=== PATIENT | male | born 1980 | race Caucasian/White ===

== ENCOUNTER → 2016-09-11 | Outpatient (CLI) | payer OTHER ==
[~2016-09-11] MED LIST: DICL75TA PO; GABA600T PO; IBUP80TA PO; NAPR500T3 PO; PERCOCET PO; TIZA4CAP3 PO; VITAPOW41 PO; [UNRECOGNIZED DRUG - CODE] SL
--- NOTE | 2016-09-16 07:29 | REP ---
MR CERVICAL SPINE WITHOUT CONTRAST: HISTORY: Neck pain. COMPARISON: 06/04/2014 A disc bulge and small disc extrusion central and eccentric to the left are present at the C5-6 level. There is a minimal spinal cord compression. Uncinate process hypertrophy is present on the left. This produced mild narrowing of the left C5 neural foramen. The right C5 neural foramen _ is patent _. A disc bulge with associated osteophyte formation is present at the C6-7 level. There is mild effacement of the thecal sac without spinal cord compression. Bilateral uncinate process hypertrophy is present. This produces minimal and moderate narrowing of the right and left C6 neural foramina respectively. There is no other disc bulge or herniation. The remaining foramina are patent. The spinal cord is normal in signal intensity. Normal signal intensity is present in the cervical vertebral bodies. IMPRESSION: There is cervical spondylosis at the C5-6 and C6-7 levels, most significant at the C5-6 level where there is minimal spinal cord compression. The spinal cord compression and disc protrusion are increased in size. Signed by Bruno Guillen MD 09/16/2016 09:42 A
--- NOTE | 2016-09-16 07:35 | REP ---
MR LUMBAR SPINE: HISTORY: Back pain. COMPARISON: 11/15/2014 Decreased signal intensity on T2-weighted images is present in the lumbar intervertebral discs. The lumbar intervertebral discs are decreased in height. There is no disc bulge or herniation at the L1-2 through L3-4___ levels. The nerves exit the neural foramina without compression. A diffuse disc bulge is present at the L4-5 level. There is minimal compression of the thecal sac. The L4 nerves exit the neural foramina without compression. A diffuse disc bulge is present at the L5-S1 level. There is no thecal sac compression. The L5 nerves exit the neural foramina without compression. The conus medullaris is normal in appearance terminating at the level of the T12-L1 intervertebral discs. Normal signal intensity is present in the lumbar vertebral bodies. IMPRESSION: 1. Diffuse disc bulge at the L4-5 level with minimal thecal sac compression. The thecal sac compression is a new finding. 2. Diffuse disc bulge at the L5-S1 level without thecal sac or nerve compression. There is no other significant change. Signed by Bruno Guillen MD 09/16/2016 09:44 A
== END ==
LOC: M RAD 15:51
PROVIDERS: ATTEND Physician Assistant Medical
DX: M47.892 Other spondylosis, cervical region (principal); M51.26 Other intervertebral disc displacement, lumbar region; M51.27 Other intervertebral disc displacement, lumbosacral region; M54.2 Cervicalgia; M54.5 Low back pain

== ENCOUNTER → 2022-04-10 | Outpatient (REF) | payer OTHER ==
[~2022-04-10] MED LIST changes: -GABA600T PO; +GABA600T4 PO; +NAPR-885 PO; -NAPR500T3 PO; +TIZA4CAP PO; -TIZA4CAP3 PO
[2022-04-10 14:03] LABS: BASO # 0.1 10^3/uL (0.0-0.2); BASO % 0.9 % (0.0-1.0); EOS # 0.3 10^3/uL (0.0-0.5); EOS % 2.9 % (0.0-3.0); HEMATOCRIT 49.3 % (42.0-52.0); HEMOGLOBIN 16.5 g/dl (13.5-17.5); LYMPH # 1.8 10^3/uL (1.5-5.0); LYMPH % 18.7 % (24.0-44.0); MEAN CORPUSCULAR HEMOGLOBIN 33.3 pg (27.0-33.0); MEAN CORPUSCULAR HGB CONC 33.5 g/dl (32.0-36.5); MEAN CORPUSCULAR VOLUME 99.6 fl (80.0-96.0); MONO # 0.6 10^3/uL (0.0-0.8); MONO % 5.9 % (2.0-8.0); NEUTROPHILS # 6.6 10^3/uL (1.5-8.5); NEUTROPHILS % 70.9 % (36.0-66.0); PLATELET COUNT, AUTOMATED 265 10^3/uL (150-450); RED BLOOD COUNT 4.95 10^6/uL (4.30-6.10); WHITE BLOOD COUNT 9.4 10^3/uL (4.0-10.0)
[2022-04-10 14:37] LABS: ALBUMIN 3.7 G/DL (3.2-5.2); ALKALINE PHOSPHATASE 93 U/L (46-116); ALT/SGPT 112 U/L (7.0-40); AST/SGOT 60 U/L (<34); BILIRUBIN,TOTAL 0.6 MG/DL (0.3-1.2); BLOOD UREA NITROGEN 14 MG/DL (9-23); CALCIUM LEVEL 9.2 MG/DL (8.5-10.1); CARBON DIOXIDE LEVEL 30 MMOL/L (20-31); CHLORIDE LEVEL 103 MMOL/L (98-107); CHOLESTEROL LEVEL 245 MG/DL (<200); CHOLESTEROL RISK RATIO 4.54 (<5); CREATININE FOR GFR 0.77 MG/DL (0.70-1.30); GLOMERULAR FILTRATION RATE > 60.0 (>60); GLUCOSE, FASTING 82 MG/DL (60-100); HDL CHOLESTEROL 53.9 MG/DL (>40); LDL CHOLESTEROL 168.5 MG/DL (<100); NON-HDL-C 191 MG/DL; POTASSIUM SERUM 4.7 MMOL/L (3.5-5.1); SODIUM LEVEL 137 MMOL/L (136-145); TOTAL PROTEIN 7.3 G/DL (5.7-8.2); TRIGLYCERIDES LEVEL 113 MG/DL (<150)
[2022-04-10 14:39] LABS: THYROID STIMULATING HORMONE 2.332 uIU/ML (0.55-4.78)
== END ==
LOC: M LAB REF 12:41
PROVIDERS: ATTEND Pediatrics
DX: I10 Essential (primary) hypertension (principal); E78.5 Hyperlipidemia, unspecified

== ENCOUNTER → 2023-01-26 | Outpatient (REF) | payer OTHER ==
[2023-01-26 13:23] LABS: HEMOGLOBIN A1c 5.4 % (4.0-6.0)
[2023-01-26 13:28] LABS: ALBUMIN 3.8 G/DL (3.2-5.2); ALKALINE PHOSPHATASE 98 U/L (46-116); ALT/SGPT 51 U/L (7.0-40); AST/SGOT 27 U/L (<34); BILIRUBIN,TOTAL 0.4 MG/DL (0.3-1.2); BLOOD UREA NITROGEN 12 MG/DL (9-23); CALCIUM LEVEL 9.2 MG/DL (8.5-10.1); CARBON DIOXIDE LEVEL 28 MMOL/L (20-31); CHLORIDE LEVEL 103 MMOL/L (98-107); CHOLESTEROL LEVEL 230 MG/DL (<200); CHOLESTEROL RISK RATIO 4.32 (<5); CREATININE FOR GFR 0.88 MG/DL (0.70-1.30); GLOMERULAR FILTRATION RATE > 60.0 (>60); GLUCOSE, FASTING 106 MG/DL (60-100); HDL CHOLESTEROL 53.2 MG/DL (>40); NON-HDL-C 176.8 MG/DL; POTASSIUM SERUM 4.3 MMOL/L (3.5-5.1); SODIUM LEVEL 139 MMOL/L (136-145); THYROID STIMULATING HORMONE 1.739 uIU/ML (0.55-4.78); TOTAL PROTEIN 6.9 G/DL (5.7-8.2); TRIGLYCERIDES LEVEL 124 MG/DL (<150)
[2023-01-26 13:43] LABS: CREATININE, URINE 480.3 MG/DL; MAU/CREAT RATIO 2.4 MCG/MG (0.0-30.0)
== END ==
LOC: M LAB REF 12:20
PROVIDERS: ATTEND Pediatrics
DX: I10 Essential (primary) hypertension (principal); E78.5 Hyperlipidemia, unspecified; R74.01 Elevation of levels of liver transaminase levels; R35.0 Frequency of micturition

== ENCOUNTER 2024-04-08 14:37 | Emergency (ER) | payer OTHER ==
[~2024-04-08] VITALS: Ht 190.5 cm; Wt 87.1 kg
[~2024-04-08 14:37] MED LIST changes: +GABA-1490 PO; -GABA600T4 PO
[2024-04-08 15:30] LABS: BASO # 0.1 10^3/uL (0.0-0.2); BASO % 0.9 % (0.0-1.0); EOS # 0.3 10^3/uL (0.0-0.5); EOS % 3.1 % (0.0-3.0); HEMATOCRIT 45.3 % (42.0-52.0); HEMOGLOBIN 15.9 g/dl (13.5-17.5); LYMPH # 2.7 10^3/uL (1.5-5.0); LYMPH % 26.8 % (24.0-44.0); MEAN CORPUSCULAR HEMOGLOBIN 29.9 pg (27.0-33.0); MEAN CORPUSCULAR HGB CONC 35.1 g/dl (32.0-36.5); MEAN CORPUSCULAR VOLUME 85.2 fl (80.0-96.0); MONO # 0.6 10^3/uL (0.0-0.8); NEUTROPHILS # 6.4 10^3/uL (1.5-8.5); NEUTROPHILS % 62.8 % (36.0-66.0); PLATELET COUNT, AUTOMATED 299 10^3/uL (150-450); RED BLOOD COUNT 5.32 10^6/uL (4.30-6.10); WHITE BLOOD COUNT 10.2 10^3/uL (4.0-10.0)
[2024-04-08 15:52] LABS: LIPASE 27 U/L (12-53)
[2024-04-08] MEDS: ONDANSETRON 4MG 2ML VIAL IV ONE (15:52)
[2024-04-08] MEDS: MORPHINE 4 MG/ML 1ML VIAL IV ONE (15:52)
[2024-04-08] MEDS: NS (Normal Saline) 0.9% 1,000 ML IV ONE (15:52)
[2024-04-08 15:54] LABS: ALKALINE PHOSPHATASE 87 U/L (40-129); ALT/SGPT 25 U/L (7.0-40); AMYLASE 52 U/L (30-118); AST/SGOT 21 U/L (<34); BILIRUBIN,DIRECT 0.2 MG/DL (<0.4); BILIRUBIN,TOTAL 0.7 MG/DL (0.3-1.2); BLOOD UREA NITROGEN 13 MG/DL (9-23); CALCIUM LEVEL 10.2 MG/DL (8.5-10.1); CARBON DIOXIDE LEVEL 24 MMOL/L (20-31); CHLORIDE LEVEL 104 MMOL/L (98-107); CREATININE FOR GFR 0.84 MG/DL (0.70-1.30); GLOMERULAR FILTRATION RATE > 60.0 (>60); GLUCOSE, FASTING 134 MG/DL (60-100); SODIUM LEVEL 141 MMOL/L (136-145); TOTAL PROTEIN 7.3 G/DL (5.7-8.2)
[2024-04-08] MEDS ORDERED: ISOVUE-370 76% 100ML VIAL As Ordered ONE (15:54)
[2024-04-08 16:34] LABS: CK-MB VALUE MASS < 1.0 NG/ML (<3.6)
[2024-04-08 16:35] LABS: CPK CREATINE PHOSPHOKINASE 182 U/L (46-171); MB/CK RELATIVE INDEX 0.54 (< OR =4)
[2024-04-08] MEDS: LIDOCAINE 2% 5ML JELLY UROJET TOP ONE (16:50)
[2024-04-08 17:03] LABS: FREE T4 1.32 NG/DL (0.89-1.76); THYROID STIMULATING HORMONE 1.654 uIU/ML (0.55-4.78)
[2024-04-08 17:10] LABS: KETONE, URINE AUTO RFX TRACE mg/dL (NEGATIVE); LEUKOCYTE ESTERASE UR AUTO RFX NEGATIVE (NEGATIVE); NITRITE, URINE AUTO RFX NEGATIVE (NEGATIVE); RBC, URINE AUTO RFX 154 /HPF (0-3); SQUAM EPITHELIAL CELL UR AURFX 0 /HPF (0-6); WBC, URINE AUTO RFX 2 /HPF (0-3)
[2024-04-08 17:26] LABS: CK-MB VALUE MASS < 1.0 NG/ML (<3.6)
[2024-04-08 17:30] LABS: CPK CREATINE PHOSPHOKINASE 151 U/L (46-171); MB/CK RELATIVE INDEX 0.66 (< OR =4)
[2024-04-08] MEDS: KETOROLAC 30 MG/ML 1ML VIAL IV ONE (17:33)
[2024-04-08] MEDS ORDERED: FLOM0.4C39 PO (17:54)
[2024-04-08] MEDS ORDERED: IBUP-1022 PO (17:54)
[2024-04-08] MEDS ORDERED: PERC5TAB12 PO (17:55)
[2024-04-08 18:00] VITALS: BP 110/66; TEMP 97; O2SAT 98
[2024-04-08] MEDS: TAMSULOSIN 0.4 MG CAP PO ONE (18:11)
[2024-04-08] MEDS: NORCO 5/325MG TABLET (HOME DOSE PACK) PO ONE (18:13)
== END 2024-04-08 18:18 | disposition home or self-care (01) ==
LOC: M ED 14:37
DX: N23 Unspecified renal colic (principal); N13.30 Unspecified hydronephrosis; N28.1 Cyst of kidney, acquired; F90.9 Attention-deficit hyperactivity disorder, unspecified type; F19.10 Other psychoactive substance abuse, uncomplicated; Z79.1 Long term (current) use of non-steroidal anti-inflammatories (NSAID); Z79.899 Other long term (current) drug therapy
CPT/HCPCS: 51701; 71045; 74177; 80047; 80048; 80076; 81001; 82150; 82550; 82553; 83605; 83690; 84439; 84443; 84484; 85025; 93005; 96361; 96374; 96375; 99285; J1885; J2405; Q9967

== ENCOUNTER → 2024-09-27 | Outpatient (CLI) | payer OTHER ==
[~2024-09-27] MED LIST changes: +ADDE20TA PO; +IBUP-1022 PO; +MIRA3350 PO; +PERC5TAB12 PO; +TAMS-18 PO
== END ==
LOC: M SOG 07:06
PROVIDERS: ATTEND Orthopaedic Surgery
DX: S42.022A Displaced fracture of shaft of left clavicle, initial encounter for closed fracture (principal); Y93.9 Activity, unspecified; Y92.9 Unspecified place or not applicable

== ENCOUNTER → 2024-11-22 | Outpatient (CLI) | payer OTHER ==
[~2024-11-22] MED LIST changes: -IBUP-1022 PO; +IBUP600T42 PO
== END ==
LOC: M SOG 06:57
PROVIDERS: ATTEND Orthopaedic Surgery
DX: Z53.9 Procedure and treatment not carried out, unspecified reason (principal)